=== PATIENT | male | born 1945 | race Caucasian/White ===

== ENCOUNTER 2017-05-29 11:25 | Emergency (ER) | payer OTHER, MEDICARE ==
[~2017-05-29] VITALS: Ht 175.3 cm; Wt 75.0 kg
[~2017-05-29 11:25] MED LIST: CEPH500C3 PO; CHOLESTEROL MED; FLUO-1 PO
[2017-05-29 11:30] VITALS: BP 141/72; PULSE 81; RESP 16; TEMP 97.7; O2SAT 96
[2017-05-29] MEDS ORDERED: PRIL20TA2 (11:39)
--- NOTE | 2017-05-29 12:23 | PD ---
HPI Chief Complaint: Laceration/Skin Injury Time Seen by Provider: 12:20 Travel History International Travel<30 days: No Contact w/Intl Traveler<30days: No Traveled to known affect area: No History of Present Illness HPI 72 year old male with laceration to the left second digit dorsal aspect. He cut the finger while using a knife to open a box. Injury occurred prior to arrival. He has full range of motion normal sensation. No other injuries. Tetanus immunization is up-to-date. Symptom severity is moderate. PFSH Past Medical History High Cholesterol: Yes Diabetes: Yes Patient Takes Glucophage: No Diminished Hearing: No Inguinal Hernia: Yes (RLQ) Triglycerides - High: Yes Tetanus Vaccination: < 5 Years Influenza Vaccination: No Past Surgical History Eye Surgery: Yes (bilat cataracts) Other Surgery: Yes (WRIST SURGERY) Social History Alcohol Use: Yes (2 BEERS/DAY EVERY DAY) Tobacco Use: Yes (3/4 PK/DAY) Substance Use: No Allergies-Medications (Allergen,Severity, Reaction): Coded Allergies: No Known Allergies (Unverified Adverse Reaction, Unknown, 05/29/17) Reported Meds & Prescriptions Reported Meds & Active Scripts Active Reported Prilosec (Omeprazole Magnesium) 20 Mg Tab [Cholesterol Med] Review of Systems Except as stated in HPI: all other systems reviewed are Neg General / Constitutional: No: Fever Physical Exam Narrative GENERAL: Alert male in no distress. SKIN: Warm and dry. 1.5 cm laceration left index finger dorsal aspect. No tendon injury. HEAD: Normocephalic. EYES: No scleral icterus. No injection or drainage. NECK: Supple, trachea midline. No JVD or lymphadenopathy. CARDIOVASCULAR: Regular rate and rhythm without murmurs, gallops, or rubs. RESPIRATORY: Breath sounds equal bilaterally. No accessory muscle use. GASTROINTESTINAL: Abdomen soft, non-tender, nondistended. MUSCULOSKELETAL: No cyanosis, or edema. Left hand: 1.5 cm laceration left index finger dorsal aspect. No tendon injury. Patient is able to fully flex and extend the digit. Normal sensation. Data Data Last Documented VS Vital Signs Date Time Temp Pulse Resp B/P (MAP) Pulse Ox O2 Delivery O2 Flow Rate FiO2 05/29/17 11:30 97.7 81 16 141/72 (95) 96 Orders Orders Ed Discharge Order (12/11/17 12:23) [facility] Medical Decision Making Medical Screen Exam Complete: Yes Emergency Medical Condition: Yes Differential Diagnosis Laceration, tendon injury, ligament injury Narrative Course 72 year old male with laceration to the left second digit dorsal aspect. He has full range of motion normal sensation. No tendon injury identified. 2 cm laceration repaired. Patient tolerated procedure well Procedures Procedure Narrative LACERATION LOCATION: Left index finger dorsal aspect LENGTH: 2 CM NUMBER OF STITCHES/JESSICA: [3] REPAIR: The area of the laceration was prepped with Betadine and sterilely draped. Digital block using 1% lidocaine. The wound was copiously irrigated and explored without evidence of foreign body, tendon injury or neurovascular injury. The wound was closed using 3-0 Ethilon. This was a single layer repair. A sterile dressing was applied. The patient was advised to keep the dressing clean and dry. Patient tolerated the procedure well. Diagnosis Primary Impression: Laceration of finger Qualified Codes: S61.211A - Laceration without foreign body of left index finger without damage to nail, initial encounter Referrals: Primary Care Physician Additional Instructions: Do not submerge the wound in water. Sutures need to be removed in 7-10 days. Disposition: 01 DISCHARGE HOME Condition: Stable Tasha Le May 29, 2017 12:23
== END 2017-05-29 12:42 | disposition home or self-care (01) ==
LOC: PHEFT 11:25
DX: S61.211A Laceration without foreign body of left index finger without damage to nail, initial encounter (principal); W26.0XXA Contact with knife, initial encounter; Y93.89 Activity, other specified
CPT/HCPCS: 12001

== ENCOUNTER 2017-06-08 09:35 | Emergency (ER) | payer OTHER, MEDICARE ==
[~2017-06-08 09:35] MED LIST changes: -CEPH500C3 PO; -FLUO-1 PO; +PRIL20TA2
[2017-06-08 09:45] VITALS: BP 128/65; PULSE 66; RESP 18; TEMP 97.3; O2SAT 97
--- NOTE | 2017-06-08 10:03 | PD ---
HPI Chief Complaint: Wound/Suture/Staple Re-Check Time Seen by Provider: 09:52 Travel History International Travel<30 days: No Contact w/Intl Traveler<30days: No Traveled to known affect area: No History of Present Illness HPI 72-year-old right-hand dominant male presents to ED for suture removal of the index finger of the left hand. Patient states that he cut himself with a knife on 05/29/17. He denies fever, chills, discharge from the wound, redness of the wound, limitations to range of motion of the extremity. He states that he's been keeping the wound clean, dry and covered. PFSH Past Medical History High Cholesterol: Yes Diabetes: Yes Patient Takes Glucophage: No Diminished Hearing: No Inguinal Hernia: Yes (RLQ) Triglycerides - High: Yes Past Surgical History Eye Surgery: Yes (bilat cataracts) Other Surgery: Yes (WRIST SURGERY) Social History Alcohol Use: Yes (2 BEERS/DAY EVERY DAY) Tobacco Use: Yes (3/4 PK/DAY) Substance Use: No Allergies-Medications (Allergen,Severity, Reaction): Coded Allergies: No Known Allergies (Unverified Adverse Reaction, Unknown, 06/08/17) Reported Meds & Prescriptions Reported Meds & Active Scripts Active Reported Prilosec (Omeprazole Magnesium) 20 Mg Tab [Cholesterol Med] Review of Systems Except as stated in HPI: all other systems reviewed are Neg Physical Exam Narrative GENERAL: Well-nourished, well-developed white male in no acute distress. SKIN: Focused skin assessment warm/dry. HEAD: Normocephalic. EYES: No scleral icterus. No injection or drainage. NECK: Supple, trachea midline. No JVD or lymphadenopathy. CARDIOVASCULAR: Regular rate and rhythm without murmurs, gallops, or rubs. RESPIRATORY: Breath sounds equal bilaterally. No accessory muscle use. GASTROINTESTINAL: Abdomen soft, non-tender, nondistended. MUSCULOSKELETAL: No cyanosis, or edema. Focused left upper extremity exam: 2+ radial pulse. There are 3 sutures in a 1.5 cm laceration of the dorsal aspect of the distal left index finger. Localized mild tenderness. Patient is able to flex and extend the finger. Sensation intact to light touch distally. BACK: Nontender without obvious deformity. No CVA tenderness. Data Data Last Documented VS Vital Signs Date Time Temp Pulse Resp B/P (MAP) Pulse Ox O2 Delivery O2 Flow Rate FiO2 06/08/17 09:45 97.3 66 18 128/65 (86) 97 Orders Orders Ed Discharge Order (06/08/17 10:03) MDM Medical Decision Making Medical Screen Exam Complete: Yes Emergency Medical Condition: Yes Differential Diagnosis Suture removal versus tendinitis versus cellulitis versus other Narrative Course 72-year-old right-hand dominant male presents to ED for suture removal of the index finger of the left hand. Patient states that he cut himself with a knife on 05/29/17. He denies fever, chills, discharge from the wound, redness of the wound, limitations to range of motion of the extremity. He states that he's been keeping the wound clean, dry and covered. Vitals reviewed. Physical exam reveals a well-healing laceration on the distal dorsal aspect of the left index finger. 3 sutures were removed without complication. Patient's instructed to keep the wound clean, dry, covered, monitor for signs of infection, follow-up with the primary care provider. He indicated understanding of the directions and is agreeable to the care plan. The patient is stable and discharged home. Procedures Procedure Narrative Suture removal: 3 Ethilon sutures were removed from the distal, dorsal aspect of the left index finger without complication. The patient is able to flex and extend the digit. No signs of cellulitis or tendinitis. Patient tolerated the procedure well. Diagnosis Primary Impression: Encounter for removal of sutures Referrals: Primary Care Physician Disposition: 01 DISCHARGE HOME Condition: Stable Shira Blanco Jun 08, 2017 10:03
== END 2017-06-08 10:22 | disposition home or self-care (01) ==
LOC: PHEFT 09:35
DX: Z48.02 Encounter for removal of sutures (principal)
CPT/HCPCS: 99281